=== PATIENT | female | born 1985 | race Caucasian/White ===

== ENCOUNTER 2018-06-16 01:25 | Emergency (ER) | payer MEDICAID ==
[~2018-06-16] VITALS: Ht 170.2 cm; Wt 76.8 kg
[~2018-06-16 01:25] MED LIST: CEPH500T PO
[2018-06-16] MEDS ORDERED: LORazepam 1 MG tablet PO ONE (01:45)
[2018-06-16 02:07] VITALS: BP 170/104
[2018-06-16] MEDS ORDERED: LISI10TA4 PO (02:21)
[2018-06-16] MEDS ORDERED: HYDR-3686 PO (02:21)
== END 2018-06-16 02:38 | disposition home or self-care (01) ==
LOC: ER 01:25
DX: I10 Essential (primary) hypertension (principal); F41.9 Anxiety disorder, unspecified; Z79.2 Long term (current) use of antibiotics; Z79.899 Other long term (current) drug therapy
CPT/HCPCS: 99283

== ENCOUNTER 2024-12-23 15:28 | Emergency (ER) | payer SELFPAY ==
[~2024-12-23] VITALS: Ht 165.1 cm; Wt 38.6 kg
[~2024-12-23 15:28] MED LIST changes: +LISI10TA27 PO
[2024-12-23 15:36] VITALS: BP 150/90; PULSE 72; O2SAT 96
[2024-12-23] MEDS ORDERED: AMOX-580 PO (16:46)
[2024-12-23] MEDS ORDERED: HYDR-3965 PO (16:46)
[2024-12-23 16:47] VITALS: RESP 16
[2024-12-23] MEDS: ketorolac trometh 30MG/ML vial 30 MG/ML VIAL IM ONE (16:47)
[2024-12-23 17:07] VITALS: TEMP 98.8
== END 2024-12-23 17:09 | disposition home or self-care (01) ==
LOC: ER 15:29
DX: K04.7 Periapical abscess without sinus (principal); K02.9 Dental caries, unspecified
CPT/HCPCS: 96372; 99283; J1885